=== PATIENT | female | born 1950 | race Caucasian/White ===

== ENCOUNTER 2022-05-22 14:16 | Emergency (ER) | payer MEDICARE ==
[~2022-05-22] VITALS: Ht 152.4 cm; Wt 52.2 kg
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
--- NOTE | 2022-05-22 14:45 | NUR ---
INSERTED ANGO CATHETER G 18 ON RT AC BLOOD DROW AND SENT TO LAB
[2022-05-22 15:29] LABS: BASOPHILS # (AUTO) 0.1 K/uL (0.0-0.2); BASOPHILS % (AUTO) 0.5 % (0.0-2.0); EOSINOPHILS % (AUTO) 1.5 % (0.0-6.0); HEMATOCRIT 33 % (33-45); LYMPHOCYTES # (AUTO) 1.6 K/uL (0.8-4.8); LYMPHOCYTES % (AUTO) 10.6 % (20.0-44.0); MEAN CORPUSCULAR HGB CONC 31 g/dl (31.0-36.0); MEAN CORPUSCULAR VOLUME 85 fL (82-100); MONOCYTES # (AUTO) 0.9 K/uL (0.1-1.30); MONOCYTES % (AUTO) 5.8 % (2.0-12.0); NEUTROPHILS # (AUTO) 12.5 K/uL (1.8-8.9); NEUTROPHILS % (AUTO) 81.6 % (43.0-81.0); PLATELET COUNT (AUTO) 404 K/uL (150-450); RED BLOOD CELL COUNT(AUTO) 3.83 MIL/uL (4.0-5.2); WHITE BLOOD COUNT (AUTO) 15.3 K/uL (4.3-11.0)
[2022-05-22 15:46] LABS: ALANINE AMINOTRANSFERASE 15 U/L (12-78); ALBUMIN 3.1 g/dL (3.4-5.0); ALKALINE PHOSPHATASE 201 U/L (46-116); ASPARTATE AMINOTRANSFERASE 16 U/L (15-37); BILIRUBIN,DIRECT 0.1 mg/dL (0.0-0.2); BILIRUBIN,TOTAL 0.2 mg/dL (0.2-1.0); CALCIUM, SERUM 10.5 mg/dL (8.5-10.1); CARBON DIOXIDE 25 mmol/L (21-32); CHLORIDE 102 mmol/L (98-107); CREATININE 0.5 mg/dL (0.6-1.3); GLUCOSE 179 mg/dL (74-106); POTASSIUM 4.5 mmol/L (3.5-5.1); SODIUM SERUM 133 mmol/L (136-145); TOTAL PROTEIN, SERUM 7.8 g/dL (6.4-8.2); UREA NITROGEN, BLOOD 7 mg/dL (7-18)
--- NOTE | 2022-05-22 16:15 | NUR ---
WOUND CULTURE SWAB SENT TO LAB
[2022-05-22] MEDS ORDERED: IV NS 0.9% 250 ML IV ONE (16:22)
[2022-05-22] MEDS ORDERED: CT SWABBABLE VALVE TRANS SET 1 EA INFUS.SET MC ONE (16:22)
[2022-05-22] MEDS ORDERED: IOHEXOL-300 100 ML VIAL IV ONE (16:22)
--- NOTE | 2022-05-22 16:27 | NUR ---
Covid swab sent to lab UA SENT TO LAB
--- NOTE | 2022-05-22 16:33 | NUR ---
TO CT SCAN
[2022-05-22] MEDS ORDERED: VANCOMYCIN 1 GM in IV D5W 250 ML IV ONE (17:30)
[2022-05-22] MEDS ORDERED: PIPERACILLIN /TAZOBACTAM 3.375 G in IV D5W 50 ML IV ONE (17:30)
--- NOTE | 2022-05-22 17:50 | NUR ---
resting and asleepy no pain
--- NOTE | 2022-05-22 18:35 | NUR ---
VITAL SIGNS WITHIN NORMAL LIMITS.
--- NOTE | 2022-05-22 19:28 | NUR ---
HAND OFF AMARI MADISON
--- NOTE | 2022-05-22 19:59 | NUR ---
CALLED DR. IVAN FOR NEURO SURGERY CONSULT. AWAITING CALL BACK
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
--- NOTE | 2022-05-22 20:25 | NUR ---
DR. IVAN ON THE PHONE WITH DR. BROWER
[2022-05-22] MEDS ORDERED: HYDROCODONE/APAP 5/325MG TABLET PO ONE (21:00)
[2022-05-22] MEDS ORDERED: HYDROCODONE/APAP 5/325MG TABLET ONE (21:07)
--- NOTE | 2022-05-22 23:23 | NUR ---
FOLLOWED UP WITH [facility] ABOUT TRANSFERING THE PT. SAID THEY ARE STILL REVIEWING THE CASE AND WILL CALL US BACK
--- NOTE | 2022-05-22 23:48 | NUR ---
GATO, FROM [facility] CALLED BACK REQUESTING FOR CLINICALS AGAIN
--- NOTE | 2022-05-23 01:01 | NUR ---
JOSS FROM [facility] CALLED THAT PT IS GOING TO BE TRANSFERED TO [facility]. PENDING PEER TO PEER. NEURO SURGEON WILL CALL BACK
--- NOTE | 2022-05-23 03:30 | NUR ---
JOSS FROM [facility] CALLED BACK TO NOTIFY THAT THE PATIENT IS ACCEPTED UNDER THE CARE OF DR. ARON BENSON. NO NEED FOR PEER TO PEER. WILL CALL BACK FOR ROOM ASIGNMENT.
--- NOTE | 2022-05-23 04:41 | NUR ---
PT IS GOING TO ROOM 2128-1 MED SURG. CALL [phone] FOR REPORT.
--- NOTE | 2022-05-23 04:44 | NUR ---
[facility] CALLED FOR BLS GOING TO [place] PER [facility] ETA- 15 MIN
--- NOTE | 2022-05-23 04:59 | NUR ---
REPORT GIVEN TO GRICELDA WARNER OF [facility] AND EMT [phone].
--- NOTE | 2022-05-23 05:40 | NUR ---
TRANSFERRED TO [facility] VIA [facility]. PT'S VITALS WITHIN NORMAL RANGE PRIOR TO TRANSPORT.
[2022-05-23 05:41] VITALS: BP 146/67
== END 2022-05-23 05:42 ==
LOC: ER 14:16
DX: L02.212 Cutaneous abscess of back [any part, except buttock and flank] (principal); M46.20 Osteomyelitis of vertebra, site unspecified; M43.24 Fusion of spine, thoracic region; J45.909 Unspecified asthma, uncomplicated; Z98.890 Other specified postprocedural states; F41.9 Anxiety disorder, unspecified; F32.A Depression, unspecified; Z20.822 Contact with and (suspected) exposure to COVID-19
CPT/HCPCS: 99285; 96365; 72129; 96375; 87426; 87070; 85025; 80048; 87040 ×2; 83605; 80076; 36415; J3370; J2543; J7060; J7050; J7040; Q9967; C9803

== ENCOUNTER 2023-02-28 06:40 | Inpatient (IN) | payer MEDICARE, OTHER ==
[~2023-02-28] VITALS: Ht 149.9 cm; Wt 51.8 kg
[2023-02-28 07:31] LABS: BASOPHILS # (AUTO) 0.1 K/uL (0.0-0.2); BASOPHILS % (AUTO) 0.6 % (0.0-2.0); EOSINOPHILS # (AUTO) 0.2 K/uL (0.0-0.7); EOSINOPHILS % (AUTO) 1.6 % (0.0-6.0); HEMATOCRIT 32 % (33-45); HEMOGLOBIN 10.4 g/dL (11.5-14.8); LYMPHOCYTES # (AUTO) 1.5 K/uL (0.8-4.8); LYMPHOCYTES % (AUTO) 13.1 % (20.0-44.0); MEAN CORPUSCULAR HEMOGLOBIN 30 PG (26.0-33.0); MEAN CORPUSCULAR HGB CONC 33 g/dl (31.0-36.0); MEAN CORPUSCULAR VOLUME 92 fL (82-100); MONOCYTES # (AUTO) 1.5 K/uL (0.1-1.30); MONOCYTES % (AUTO) 12.9 % (2.0-12.0); NEUTROPHILS # (AUTO) 8.3 K/uL (1.8-8.9); NEUTROPHILS % (AUTO) 71.8 % (43.0-81.0); PLATELET COUNT (AUTO) 366 K/uL (150-450); RED BLOOD CELL COUNT(AUTO) 3.42 MIL/uL (4.0-5.2); RED CELL DISTRIBUTION WIDTH 16.5 % (11.5-15.0); WHITE BLOOD COUNT (AUTO) 11.5 K/uL (4.3-11.0)
[2023-02-28 07:55] LABS: CALCIUM, SERUM 10.6 mg/dL (8.5-10.1); CARBON DIOXIDE 24 mmol/L (21-32); CHLORIDE 104 mmol/L (98-107); CREATININE 0.3 mg/dL (0.6-1.3); GLUCOSE 89 mg/dL (74-106); POTASSIUM 3.7 mmol/L (3.5-5.1); SODIUM SERUM 135 mmol/L (136-145); UREA NITROGEN, BLOOD 12 mg/dL (7-18)
[2023-02-28] MEDS ORDERED: ONDANSETRON HCL/PF 4 MG/2 ML VIAL IV ONE (08:00)
[2023-02-28] MEDS ORDERED: FENTANYL PF 100MCG/2ML AMPUL IV ONE (08:00)
[2023-02-28 08:02] LABS: ALANINE AMINOTRANSFERASE 20 U/L (12-78); ALBUMIN 3.1 g/dL (3.4-5.0); ALKALINE PHOSPHATASE 129 U/L (46-116); ASPARTATE AMINOTRANSFERASE 10 U/L (15-37); BILIRUBIN,DIRECT 0.2 mg/dL (0.0-0.2); BILIRUBIN,TOTAL 0.4 mg/dL (0.2-1.0); LIPASE 13 U/L (16-77); TOTAL PROTEIN, SERUM 7.2 g/dL (6.4-8.2)
[2023-02-28] MEDS ORDERED: ONDANSETRON HCL/PF 4 MG/2 ML VIAL ONE (08:15)
[2023-02-28] MEDS ORDERED: FENTANYL PF 100MCG/2ML AMPUL ONE (08:16)
[2023-02-28] MEDS ORDERED: ACET-868 PO (09:10)
[2023-02-28] MEDS ORDERED: METH-647 PO (09:10)
[2023-02-28] MEDS ORDERED: ARIP10TA9 PO (09:10)
[2023-02-28] MEDS ORDERED: FLUT16SP BNOSTRILS (09:10)
[2023-02-28] MEDS ORDERED: ACET-2605 PO (09:10)
[2023-02-28] MEDS ORDERED: MULT-1094 PO (09:10)
[2023-02-28] MEDS ORDERED: HYDR453.3 TP (09:10)
[2023-02-28] MEDS ORDERED: SERT100T PO (09:10)
[2023-02-28] MEDS ORDERED: ALBU8.5H8 IH (09:10)
[2023-02-28] MEDS ORDERED: METH10TA2 PO (09:10)
[2023-02-28] MEDS ORDERED: OXYC5TAB3 PO (09:10)
[2023-02-28] MEDS ORDERED: PANT40TA49 PO (09:10)
[2023-02-28] MEDS ORDERED: SENN-261 PO (09:10)
[2023-02-28] MEDS ORDERED: MELA1TAB15 PO (09:10)
[2023-02-28] MEDS ORDERED: ASCO-340 PO (09:10)
[2023-02-28 10:20] LABS: APPEARANCE,URINE CLEAR (CLEAR); BILIRUBIN,URINE NEGATIVE (NEGATIVE); BLOOD, URINE NEGATIVE Ery/uL (NEGATIVE); COLOR,URINE YELLOW (YELLOW); KETONES,URINE NEGATIVE (NEGATIVE); LEUKOCYTE ESTERASE ,URINE NEGATIVE (NEGATIVE); NITRITE, URINE NEGATIVE (NEGATIVE); PROTEIN,URINE NEGATIVE (NEGATIVE); UGLUCOSE NEGATIVE (NEGATIVE); UROBILINOGEN,URINE 0.2 EU/dL (0.2)
[2023-02-28 10:30] VITALS: BP 143/66; TEMP 98; O2SAT 97
[2023-02-28] MEDS ORDERED: oxyCODONE/APAP (5/325 MG) 1 UDTAB TABLET PO PRN ×2 (13:00→17:00)
[2023-02-28] MEDS ORDERED: ACETAMINOPHEN 325 MG TABLET PO PRN (15:00)
[2023-02-28] MEDS ORDERED: Z GUARD REMEDY 4 OZ OINT TP PRN (15:00)
[2023-02-28] MEDS ORDERED: MAG HYDROX/AL HYDROX/SIMETH 30 ML UDC PO PRN (15:00)
[2023-02-28] MEDS ORDERED: ONDANSETRON HCL/PF 4 MG/2 ML VIAL IVP PRN (15:00)
[2023-02-28] MEDS ORDERED: MAGNESIUM HYDROXIDE 30 ML UDC PO PRN (15:00)
[2023-02-28] MEDS: ENOXAPARIN SODIUM 40 MG/0.4 ML DISP.SYRIN SQ SCH (15:54)
[2023-02-28 16:00] VITALS: BP 134/75; TEMP 97.9; O2SAT 95
[2023-02-28] MEDS: KETOROLAC TROMETHAMINE 15 MG/ML VIAL IV PRN (16:31)
[2023-02-28] MEDS: METHADONE HCL 10 MG TABLET PO SCH (17:00)
[2023-02-28] MEDS ORDERED: NALOXONE HCL 0.4 MG/ML AMPUL IV PRN ×2 (17:00)
[2023-02-28 20:00] VITALS: BP 123/61; TEMP 98.1; O2SAT 93
[2023-02-28] MEDS: oxyCODONE/APAP (5/325 MG) 1 UDTAB TABLET PO PRN (21:35)
[2023-03-01 04:00] VITALS: BP 125/95; TEMP 98.4; O2SAT 93
[2023-03-01] MEDS: oxyCODONE/APAP (5/325 MG) 1 UDTAB TABLET PO PRN ×3 (04:45→18:42)
[2023-03-01 06:37] LABS: BASOPHILS # (AUTO) 0.1 K/uL (0.0-0.2); BASOPHILS % (AUTO) 0.6 % (0.0-2.0); EOSINOPHILS # (AUTO) 0.1 K/uL (0.0-0.7); EOSINOPHILS % (AUTO) 0.9 % (0.0-6.0); HEMATOCRIT 28 % (33-45); HEMOGLOBIN 9.4 g/dL (11.5-14.8); LYMPHOCYTES # (AUTO) 1.5 K/uL (0.8-4.8); LYMPHOCYTES % (AUTO) 16.4 % (20.0-44.0); MEAN CORPUSCULAR HEMOGLOBIN 31 PG (26.0-33.0); MEAN CORPUSCULAR HGB CONC 34 g/dl (31.0-36.0); MEAN CORPUSCULAR VOLUME 92 fL (82-100); MONOCYTES % (AUTO) 11.3 % (2.0-12.0); NEUTROPHILS # (AUTO) 6.3 K/uL (1.8-8.9); NEUTROPHILS % (AUTO) 70.8 % (43.0-81.0); PLATELET COUNT (AUTO) 358 K/uL (150-450); RED BLOOD CELL COUNT(AUTO) 3.07 MIL/uL (4.0-5.2); RED CELL DISTRIBUTION WIDTH 16.7 % (11.5-15.0); WHITE BLOOD COUNT (AUTO) 8.9 K/uL (4.3-11.0)
[2023-03-01 07:13] LABS: CALCIUM, SERUM 9.7 mg/dL (8.5-10.1); CARBON DIOXIDE 26 mmol/L (21-32); CHLORIDE 104 mmol/L (98-107); CREATININE 0.4 mg/dL (0.6-1.3); GLUCOSE 128 mg/dL (74-106); MAGNESIUM 1.5 mg/dL (1.8-2.4); PHOSPHORUS 2.1 mg/dL (2.5-4.9); POTASSIUM 3.2 mmol/L (3.5-5.1); SODIUM SERUM 139 mmol/L (136-145); UREA NITROGEN, BLOOD 9 mg/dL (7-18)
[2023-03-01] MEDS: PANTOPRAZOLE 40 MG TABLET.DR PO SCH (07:53)
[2023-03-01 08:00] VITALS: BP 134/76; TEMP 98.1; O2SAT 95
[2023-03-01] MEDS: POTASSIUM CHLORIDE 20 MEQ TAB.PRT.SR PO SCH ×2 (08:42→09:32)
[2023-03-01] MEDS: METHADONE HCL 10 MG TABLET PO SCH ×2 (08:43→16:51)
[2023-03-01] MEDS ORDERED: MAGNESIUM OXIDE 400 MG TABLET PO ONE (09:00)
[2023-03-01] MEDS ORDERED: K PHOS NEUTRAL 250 MG TABLET PO ONE (11:00)
[2023-03-01] MEDS: KETOROLAC TROMETHAMINE 15 MG/ML VIAL IV PRN (13:25)
[2023-03-01] MEDS: ENOXAPARIN SODIUM 40 MG/0.4 ML DISP.SYRIN SQ SCH (15:33)
[2023-03-01 16:00] VITALS: BP 119/50; TEMP 97.9; O2SAT 94
[2023-03-01 20:00] VITALS: BP 142/54; TEMP 97.8; O2SAT 98
[2023-03-01] MEDS: ZOLPIDEM TARTRATE 5 MG TABLET PO PRN (21:44)
[2023-03-02 04:00] VITALS: BP 117/56; TEMP 99; O2SAT 96
[2023-03-02] MEDS: oxyCODONE/APAP (5/325 MG) 1 UDTAB TABLET PO PRN ×2 (06:10→13:30)
[2023-03-02 07:37] LABS: BASOPHILS # (AUTO) 0.1 K/uL (0.0-0.2); BASOPHILS % (AUTO) 1.1 % (0.0-2.0); EOSINOPHILS # (AUTO) 0.3 K/uL (0.0-0.7); HEMATOCRIT 27 % (33-45); HEMOGLOBIN 8.8 g/dL (11.5-14.8); LYMPHOCYTES # (AUTO) 1.8 K/uL (0.8-4.8); LYMPHOCYTES % (AUTO) 21.4 % (20.0-44.0); MEAN CORPUSCULAR HEMOGLOBIN 30 PG (26.0-33.0); MEAN CORPUSCULAR HGB CONC 33 g/dl (31.0-36.0); MEAN CORPUSCULAR VOLUME 92 fL (82-100); MONOCYTES # (AUTO) 1.1 K/uL (0.1-1.30); MONOCYTES % (AUTO) 13.8 % (2.0-12.0); NEUTROPHILS % (AUTO) 60.7 % (43.0-81.0); PLATELET COUNT (AUTO) 366 K/uL (150-450); RED BLOOD CELL COUNT(AUTO) 2.92 MIL/uL (4.0-5.2); RED CELL DISTRIBUTION WIDTH 16.3 % (11.5-15.0); WHITE BLOOD COUNT (AUTO) 8.3 K/uL (4.3-11.0)
[2023-03-02] MEDS: PANTOPRAZOLE 40 MG TABLET.DR PO SCH (07:41)
[2023-03-02 07:52] LABS: CALCIUM, SERUM 9.4 mg/dL (8.5-10.1); CARBON DIOXIDE 28 mmol/L (21-32); CHLORIDE 106 mmol/L (98-107); CREATININE 0.4 mg/dL (0.6-1.3); GLUCOSE 90 mg/dL (74-106); MAGNESIUM 1.9 mg/dL (1.8-2.4); PHOSPHORUS 2.2 mg/dL (2.5-4.9); POTASSIUM 4.3 mmol/L (3.5-5.1); SODIUM SERUM 139 mmol/L (136-145); UREA NITROGEN, BLOOD 13 mg/dL (7-18)
[2023-03-02 08:00] VITALS: BP 120/44; TEMP 98.8; O2SAT 97
[2023-03-02] MEDS: METHADONE HCL 10 MG TABLET PO SCH ×3 (09:03→21:41)
[2023-03-02] MEDS ORDERED: NEUTRA PHOS 1 POWD.PACKET PO ONE (11:00)
[2023-03-02] MEDS ORDERED: METHOCARBAMOL (500MG) 500 MG TABLET PO SCH (13:00)
[2023-03-02] MEDS ORDERED: ACETAMINOPHEN 325 MG TABLET PO PRN (13:00)
[2023-03-02] MEDS ORDERED: ALBUTEROL FS 2.5 MG/0.5 ML VIAL.NEB IH PRN (15:00)
[2023-03-02 16:00] VITALS: BP 123/57; TEMP 98.8; O2SAT 98
[2023-03-02] MEDS: METHOCARBAMOL (500MG) 500 MG TABLET PO SCH ×2 (16:21→17:18)
[2023-03-02] MEDS: ENOXAPARIN SODIUM 40 MG/0.4 ML DISP.SYRIN SQ SCH (16:23)
[2023-03-02] MEDS: ASCORBIC ACID 500 MG TABLET PO SCH (16:24)
[2023-03-02] MEDS: SENNOSIDES 8.6 MG TABLET PO SCH (16:53)
[2023-03-02] MEDS: HYDROCORTISONE 2.5% CREAM 28.4 GM TUBE TP SCH (17:19)
[2023-03-02 20:00] VITALS: BP 132/61; TEMP 98.8; O2SAT 99
[2023-03-02] MEDS: ZOLPIDEM TARTRATE 5 MG TABLET PO PRN (21:40)
[2023-03-02] MEDS ORDERED: Medication Not On Formulary EA (Melatonin/Pyridoxine Hcl (Melatonin 1 Mg Tablet) 1 EACH) PO SCH (22:00)
[2023-03-03 04:00] VITALS: BP 105/48; TEMP 98; O2SAT 95
[2023-03-03] MEDS: oxyCODONE/APAP (5/325 MG) 1 UDTAB TABLET PO PRN ×2 (05:09→14:58)
[2023-03-03 05:47] LABS: BASOPHILS # (AUTO) 0.1 K/uL (0.0-0.2); BASOPHILS % (AUTO) 1.1 % (0.0-2.0); EOSINOPHILS # (AUTO) 0.4 K/uL (0.0-0.7); EOSINOPHILS % (AUTO) 3.9 % (0.0-6.0); HEMATOCRIT 28 % (33-45); HEMOGLOBIN 9.4 g/dL (11.5-14.8); LYMPHOCYTES # (AUTO) 2.7 K/uL (0.8-4.8); LYMPHOCYTES % (AUTO) 29.1 % (20.0-44.0); MEAN CORPUSCULAR HEMOGLOBIN 31 PG (26.0-33.0); MEAN CORPUSCULAR HGB CONC 33 g/dl (31.0-36.0); MEAN CORPUSCULAR VOLUME 93 fL (82-100); MONOCYTES # (AUTO) 1.1 K/uL (0.1-1.30); MONOCYTES % (AUTO) 12.3 % (2.0-12.0); NEUTROPHILS % (AUTO) 53.6 % (43.0-81.0); PLATELET COUNT (AUTO) 378 K/uL (150-450); RED BLOOD CELL COUNT(AUTO) 3.03 MIL/uL (4.0-5.2); RED CELL DISTRIBUTION WIDTH 16.4 % (11.5-15.0); WHITE BLOOD COUNT (AUTO) 9.3 K/uL (4.3-11.0)
[2023-03-03 06:20] LABS: CALCIUM, SERUM 9.5 mg/dL (8.5-10.1); CARBON DIOXIDE 28 mmol/L (21-32); CHLORIDE 105 mmol/L (98-107); CREATININE 0.3 mg/dL (0.6-1.3); GLUCOSE 78 mg/dL (74-106); MAGNESIUM 1.8 mg/dL (1.8-2.4); PHOSPHORUS 2.8 mg/dL (2.5-4.9); POTASSIUM 4.4 mmol/L (3.5-5.1); SODIUM SERUM 137 mmol/L (136-145); UREA NITROGEN, BLOOD 6 mg/dL (7-18)
[2023-03-03] MEDS: SENNOSIDES 8.6 MG TABLET PO SCH (08:37)
[2023-03-03] MEDS: METHOCARBAMOL (500MG) 500 MG TABLET PO SCH ×2 (08:38→13:33)
[2023-03-03] MEDS: ASCORBIC ACID 500 MG TABLET PO SCH (08:38)
[2023-03-03] MEDS: METHADONE HCL 10 MG TABLET PO SCH ×2 (08:38→08:41)
[2023-03-03] MEDS: PANTOPRAZOLE 40 MG TABLET.DR PO SCH (08:38)
[2023-03-03] MEDS: HYDROCORTISONE 2.5% CREAM 28.4 GM TUBE TP SCH ×2 (08:40→13:34)
[2023-03-03] MEDS ORDERED: ARIPIPRAZOLE 5 MG TABLET PO SCH (09:00)
[2023-03-03] MEDS ORDERED: SERTRALINE HCL 50 MG TABLET PO SCH (09:00)
[2023-03-03] MEDS ORDERED: MULTIVITS,TH W-FE,OTHER MIN 1 TAB TABLET PO SCH (09:00)
[2023-03-03] MEDS ORDERED: FLUTICASONE PROPIONATE 16 GM BOTTLE NS SCH (09:00)
[2023-03-03] MEDS ORDERED: PANTOPRAZOLE 40 MG TABLET.DR PO SCH (09:00)
[2023-03-03 09:28] VITALS: BP 126/54; TEMP 97.8; O2SAT 98
[2023-03-03] MEDS ORDERED: OXYC1TAB8 PO (14:21)
[2023-03-03] MEDS ORDERED: METH10TA2 PO (14:21)
[2023-03-03] MEDS ORDERED: NALO4SPR BNOSTRILS (14:21)
[2023-03-03] MEDS: ENOXAPARIN SODIUM 40 MG/0.4 ML DISP.SYRIN SQ SCH (14:49)
[2023-03-03 16:00] VITALS: BP 117/56; TEMP 99; O2SAT 96
== END 2023-03-03 17:05 | DRG 543 ==
LOC: ER 06:46 → TRANSITION 09:39 → MEDSG1 09:56
PROVIDERS: ADMIT Student in an Organized Health Care Education/Training Program; ATTEND Student in an Organized Health Care Education/Training Program
DX: M48.54XA Collapsed vertebra, not elsewhere classified, thoracic region, initial encounter for fracture (principal); E87.1 Hypo-osmolality and hyponatremia; J96.11 Chronic respiratory failure with hypoxia; M54.50 Low back pain, unspecified; M51.36 Other intervertebral disc degeneration, lumbar region; M96.1 Postlaminectomy syndrome, not elsewhere classified; D64.9 Anemia, unspecified; E87.6 Hypokalemia; F32.A Depression, unspecified; F41.9 Anxiety disorder, unspecified; G89.4 Chronic pain syndrome; J45.909 Unspecified asthma, uncomplicated; Z99.81 Dependence on supplemental oxygen; Z98.1 Arthrodesis status; Z79.891 Long term (current) use of opiate analgesic; Z86.61 Personal history of infections of the central nervous system; R74.8 Abnormal levels of other serum enzymes; G62.9 Polyneuropathy, unspecified; D72.829 Elevated white blood cell count, unspecified; M48.04 Spinal stenosis, thoracic region
CPT/HCPCS: 36415; 71045-TC; 80048-TC; 80076-TC; 83690-TC; 83735-TC; 84100-TC; 85025-TC; 97112-TC; 97530-TC; G0378; J1650; J1885; J2405; J3010

== ENCOUNTER 2023-11-03 04:01 | Emergency (ER) | payer OTHER ==
[~2023-11-03] VITALS: Ht 152.4 cm; Wt 44.5 kg
[~2023-11-03 04:01] MED LIST: ACET-2605 PO; ACET-868 PO; ALBU8.5H8 IH; ARIP10TA9 PO; ASCO-340 PO; FLUT16SP BNOSTRILS; HYDR453.3 TP; MELA1TAB15 PO; METH-647 PO; METH10TA2 PO; MULT-1094 PO; NALO4SPR BNOSTRILS; OXYC1TAB8 PO; OXYC5TAB3 PO; PANT40TA49 PO; SENN-261 PO; SERT100T PO
[2023-11-03] MEDS ORDERED: MORPHINE SULFATE INJ 4 MG/ML DISP.SYRIN ONE (04:41)
[2023-11-03] MEDS: MORPHINE SULFATE INJ 2 MG/ML DISP.SYRIN IM ONE (04:45)
[2023-11-03] MEDS ORDERED: FAMOTIDINE (20 MG) 20 MG TABLET ONE (05:12)
[2023-11-03] MEDS: FAMOTIDINE (20 MG) 20 MG TABLET PO ONE (05:18)
[2023-11-03 07:54] VITALS: BP 121/88; TEMP 98.4; O2SAT 95
== END 2023-11-03 07:54 ==
LOC: ER 04:03
DX: G89.29 Other chronic pain (principal); M54.50 Low back pain, unspecified; J45.909 Unspecified asthma, uncomplicated; F41.9 Anxiety disorder, unspecified; F32.A Depression, unspecified; Z85.118 Personal history of other malignant neoplasm of bronchus and lung; Z91.048 Other nonmedicinal substance allergy status
CPT/HCPCS: 99283; 96372; J2270

== ENCOUNTER 2023-11-03 19:56 | Emergency (ER) | payer OTHER ==
[~2023-11-03] VITALS: Ht 152.4 cm; Wt 44.5 kg
[2023-11-03] MEDS: MORPHINE SULFATE INJ 2 MG/ML DISP.SYRIN IM ONE (22:24)
[2023-11-04 00:14] VITALS: BP 119/71; TEMP 97.9; O2SAT 97
== END 2023-11-04 00:14 ==
LOC: ER 19:58
DX: G89.29 Other chronic pain (principal); M54.59 Other low back pain; E78.5 Hyperlipidemia, unspecified; J45.909 Unspecified asthma, uncomplicated; F41.9 Anxiety disorder, unspecified; F32.A Depression, unspecified; Z85.118 Personal history of other malignant neoplasm of bronchus and lung; Z91.09 Other allergy status, other than to drugs and biological substances
CPT/HCPCS: 99283; 96372; J2270